=== PATIENT | female | born 1975 | race Caucasian/White ===

== ENCOUNTER 2016-06-01 05:12 | Emergency (ER) | payer OTHER ==
[2016-06-01] MEDS ORDERED: Pantoprazole 80 MG in Sodium Chloride 0.9% 100 ML IV STA (05:35)
[2016-06-01] MEDS ORDERED: Sodium Chloride 0.9% 1,000 ML IV ONE (05:35)
--- NOTE | 2016-06-01 05:35 | C.PDOC ---
History Of Present Illness Patient presents to the ER for a complaint of nausea, vomiting, and diarrhea since yesterday. Patient states she is unable to tolerate PO and notes specks of "blood" in vomitus. Pt had just drank some red gatorade . Denies SOB, fever, or chills. Time Seen by Provider: 06/01/16 05:30 Chief Complaint (Nursing): Abdominal Pain History Per: Patient History/Exam Limitations: no limitations Onset/Duration Of Symptoms: Days (Since yesterday) Current Symptoms Are (Timing): Still Present Context: Other (not tolerating PO) Pain Scale Rating Of: 4 Associated Symptoms: Nausea, Vomiting, Diarrhea. denies: Fever, Chills Past Medical History Reviewed: Historical Data, Nursing Documentation, Vital Signs Vital Signs: Last Vital Signs Temp 98.9 F 06/01/16 06:12 Pulse 96 H 06/01/16 06:12 Resp 18 06/01/16 06:12 BP 120/80 06/01/16 06:12 Pulse Ox 97 06/01/16 06:12 - Medical History PMH: No Chronic Diseases Surgical History: Cholecystectomy, - [facility] Procedures LOW CERVICAL (08/19/12) RESECTION OF GALLBLADDER, PERCUTANEOUS ENDOSCOPIC APPROACH (01/15/15) Family History: States: No Known Family Hx - Social History Hx Tobacco Use: No Hx Alcohol Use: Yes Hx Substance Use: No - Immunization History Hx Influenza Vaccination: No Review Of Systems Constitutional: Negative for: Fever, Chills Gastrointestinal: Positive for: Nausea, Vomiting, Diarrhea Physical Exam - Physical Exam Appears: Non-toxic Skin: Warm, Dry Oral Mucosa: Moist Chest: Symmetrical Cardiovascular: Rhythm Regular, No Murmur Respiratory: No Rales, No Rhonchi, No Wheezing Gastrointestinal/Abdominal: Soft, Tenderness (Mid epigastric ), No Distention, No Guarding, No Rebound Neurological/Psych: Oriented x3 ED Course And Treatment - Laboratory Results Result Diagrams: 06/01/16 05:58 06/01/16 05:58 O2 Sat by Pulse Oximetry: 98 (room air) Pulse Ox Interpretation: Normal Progress Note: Blood work, blood screen and type, urinalysis, HCG qualitative urine test, and stool test ordered. Morphine IVP, protonix IV, IV fluids, and zofran IVP administered. Disposition Counseled Patient/Family Regarding: Studies Performed, Diagnosis - Disposition Disposition Time: 05:35 Condition: UNKNOWN - Clinical Impression Clinical Impression: Nausea, Abdominal pain, Vomiting - Scribe Statement The provider has reviewed the documentation as recorded by the Scribkylie Cordova All medical record entries made by the Willieibe were at my direction and personally dictated by me. I have reviewed the chart and agree that the record accurately reflects my personal performance of the history, physical exam, medical decision making, and the department course for this patient. I have also personally directed, reviewed, and agree with the discharge instructions and disposition. Physician Patient Turnover Patient Signed Over To: Remi Munoz DO Handoff Comments: pending labs and disposit
[2016-06-01] MEDS ORDERED: Sodium Chloride 0.9% 1,000 ML ONE (05:54)
[2016-06-01] MEDS ORDERED: Sodium Chloride 0.9% 100 ML ONE (05:55)
[2016-06-01 06:02] LABS: BASO % 0.3 % (0.0-2.0); EOS % 0.4 % (0.0-4.0); HEMATOCRIT 51.1 % (34.0-47.0); LYMPH # 0.4 K/uL (1.0-4.3); LYMPH % 3.5 % (20.0-40.0); MEAN CELL VOLUME 86.5 fL (81.0-99.0); MEAN CORPUSCULAR HEMOGLOBIN 28.4 pg (27.0-31.0); MEAN CORPUSCULAR HGB CONC 32.9 g/dL (33.0-37.0); MEAN PLATELET VOLUME 10.5 fL (7.2-11.7); MONO # 0.3 K/uL (0.0-0.8); MONO % 2.7 % (0.0-10.0); PLATELET COUNT 199 K/uL (130-400); WHITE BLOOD COUNT 11.8 K/uL (4.8-10.8)
[2016-06-01 06:17] LABS: CHLORIDE 104 mmol/L (98-107)
[2016-06-01 06:18] LABS: POTASSIUM 4.7 mmol/L (3.6-5.2); SODIUM 139 mmol/L (132-148)
[2016-06-01 06:20] LABS: ALB/GLOB RATIO 1.1 (1.0-2.1); ALKALINE PHOSPHATASE 108 U/L (38-126); ALT/SGPT 112 U/L (9-52); AST/SGOT 74 U/L (14-36); BILIRUBIN,TOTAL 0.7 mg/dL (0.2-1.3); BLOOD UREA NITROGEN 22 mg/dL (7-17); CARBON DIOXIDE 19 mmol/L (22-30); GFR AFRICAN-AMERICAN > 60; GLUCOSE,RANDOM 173 mg/dL (65-105); TOTAL PROTEIN 8.9 g/dL (6.3-8.3)
[2016-06-01 06:21] LABS: CALCIUM 9.5 mg/dl (8.6-10.4)
[2016-06-01 06:38] LABS: EOSINOPHIL 1 % (0-4); NEUTROPHIL 83 % (50-75); TOTAL CELLS COUNTED 100
--- NOTE | 2016-06-01 10:18 | CT ---
PROCEDURE: CT Abdomen and Pelvis with contrast HISTORY: n/v/abd pain COMPARISON: Limited abdominal ultrasound performed 01/14/15 TECHNIQUE: Contrast dose: 100 mL Visipaque Radiation dose: Total exam DLP = 290.31 mGy-cm. This CT exam was performed using one or more of the following dose reduction techniques: Automated exposure control, adjustment of the mA and/or kV according to patient size, and/or use of iterative reconstruction technique. FINDINGS: LOWER THORAX: Mild bibasilar atelectasis. No visible pleural effusion or pneumothorax. LIVER: Unremarkable. GALLBLADDER AND BILE DUCTS: Cholecystectomy. PANCREAS: Unremarkable. SPLEEN: Unremarkable. ADRENALS: Unremarkable. KIDNEYS AND URETERS: The kidneys enhance symmetrically. No evidence of hydronephrosis or obstructing calculus. VASCULATURE: No aortic aneurysm. BOWEL: The stomach is nondistended. Oral contrast was not administered. Bowel loops appear within normal limits of caliber without evidence of obstruction. Fluid within small and large bowel suggests diarrheal illness. APPENDIX: The appendix appears within normal limits of caliber. No secondary signs of acute appendicitis. PERITONEUM: No significant free fluid. No definite free air. LYMPH NODES: No bulky adenopathy. BLADDER: Unremarkable. REPRODUCTIVE: The uterus is present. IUD. 1.6 cm probable left ovarian cyst. BONES: Degenerative changes of the spine. OTHER FINDINGS: Small fat containing umbilical hernia. IMPRESSION: Fluid within small and large bowel may be seen in the setting of diarrheal illness. 1.6 cm probable left ovarian cyst. Pelvic ultrasound may be considered for further evaluation. Cholecystectomy. Additional incidental findings as above.
[2016-06-01 11:06] LABS: RBC URINE 139 /hpf (0-3); URINE BACTERIA RARE (<OCC); URINE BILIRUBIN NEGATIVE (NEGATIVE); URINE BLOOD 3+ (NEGATIVE); URINE COLOR Yellow (YELLOW); URINE GLUCOSE (UA) NORMAL (Normal); URINE KETONE NEGATIVE (NEGATIVE); URINE LEUKOCYTE ESTERASE NEG Leu/uL (Negative); URINE PROTEIN 3+ mg/dL (NEGATIVE); URINE UROBILINOGEN NORMAL mg/dL (0.2-1.0)
[2016-06-01 11:22] LABS: WBC URINE 4 /hpf (0-5)
[2016-06-01 11:26] VITALS: BP 131/72; PULSE 116; RESP 18; TEMP 98.8; O2SAT 97
== END 2016-06-01 11:25 | disposition home or self-care (01) ==
LOC: C.ER 05:12
DX: R11.2 Nausea with vomiting, unspecified (principal); R10.13 Epigastric pain
CPT/HCPCS: 74177; 80053; 81001; 83690; 84703; 85025; 85610; 85730; 86850; 86900; 96361; 96374; 96375; 99285; C9113; J2270; J2405; J7040

== ENCOUNTER 2018-03-26 10:44 | Outpatient (CLI) | payer OTHER | END 2018-03-26 10:45 | disposition home or self-care (01) | LOC: C.RADH 10:44 ==

== ENCOUNTER 2018-04-19 08:41 | Outpatient (CLI) | payer OTHER | END 2018-04-19 08:42 | disposition home or self-care (01) | LOC: C.LAB 08:41 ==

== ENCOUNTER 2018-04-24 13:07 | Outpatient (CLI) | payer OTHER | END 2018-04-24 13:08 | disposition home or self-care (01) | LOC: C.USIC 13:07 | DX: N91.2 Amenorrhea, unspecified (principal) ==